=== PATIENT | male | born 1975 | race Caucasian/White ===

== ENCOUNTER → 2018-04-20 11:24 | Outpatient (CLI) | payer MEDICAID, SELFPAY ==
[2018-04-20 11:49] VITALS: BP 144/88; PULSE 71; RESP 16; TEMP 36.5; O2SAT 98; BMI 30.8
[2018-04-20 12:23] VITALS: BP 144/88; PULSE 71; RESP 16; TEMP 36.5; O2SAT 98
[2018-04-20] MEDS: Acetaminophen 325 MG Tablet 650 MG PO (12:31)
[2018-04-20 12:38] VITALS: BP 140/85; PULSE 66; RESP 16; TEMP 36.5; O2SAT 99
[2018-04-20 13:57] VITALS: BP 143/81; PULSE 69; RESP 16; TEMP 36.6
[2018-04-20 14:00] VITALS: BP 138/78; PULSE 69; RESP 16; TEMP 36.7
== END ==
PROVIDERS: Family Provider Family Medicine; PCP Family Medicine; Referring Provider Internal Medicine Hematology & Oncology; Visit Provider Internal Medicine Hematology & Oncology
DX: C92.00 Acute myeloblastic leukemia, not having achieved remission (principal)
CPT/HCPCS: 36430; 86900; 86965; J7040; P9037; A4216

== ENCOUNTER 2018-04-24 13:28 | Emergency (ER) | payer MEDICAID, SELFPAY ==
[2018-04-24] VITALS (10 sets, daily range): BP systolic 95–143; BP diastolic 66–88; PULSE 99–140; RESP 12–25; TEMP 36.9–38.3; O2SAT 97–100; BMI 29.8
--- NOTE | 2018-04-24 13:51 | RAD_ITS ---
STUDY: X-RAY CHEST REASON FOR EXAM: Male, 42 years old. Fever. TECHNIQUE: Single AP portable view of the chest. COMPARISON: None. FINDINGS: Double-lumen dialysis catheter terminates in the lower SVC. The lungs are clear and expanded. There is no demonstrated pleural abnormality. Normal size heart. Normal mediastinum and justin. Normal visualized pulmonary arteries. Normal visualized aortic arch and descending thoracic aorta. Normal visualized thoracic spine. Normal visualized ribs, clavicles, and shoulders. There is no demonstrated abnormality of the visualized soft tissue structures of the upper abdomen. RAD/Chest 1 View (Portable) IMPRESSION: No acute chest disease. Electronically Signed: Jevon Lewis MD at 15:06 EST , Service support ,
--- NOTE | 2018-04-24 13:51 | EKG12_ITS ---
Test Reason : Blood Pressure : / mmHG Vent. Rate : 134 BPM Atrial Rate : 134 BPM P-R Int : 134 ms QRS Dur : 082 ms QT Int : 392 ms P-R-T Axes : 036 015 021 degrees QTc Int : 585 ms Sinus tachycardia Cannot rule out Inferior infarct , age undetermined Abnormal ECG Confirmed by KATJA MARTINEZ, AMINATA ([id number]), visual effects editor BRAYAN MARQUEZ ([id number] on 04/28/2018 11:42:50 AM Referred By: Cecy Goss Confirmed By:AMINATA HIGHTOWER MD
--- NOTE | 2018-04-24 13:53 | ED.VISSUMM ---
- ER Visit Summary Date of Service: 04/24/18 Chief Complaint: Fall, lightheaded and weak History of Present Illness: The patient is a 42 M who has AML is on chemotherapy with last chemotherapy yesterday presents with jaundice, weakness and one episode of possible syncope earlier witnessed by his father. Patient said he was just sleeping but father was unable to wake him up. Patient denies any pain. He fell earlier today on wet tile, he apparently grabbed on to the bar and did not hit his head or any other injury. He certainly feels more lightheaded than normal and weak. Physical Examination: Patient appears chronically ill, he is obviously jaundiced Pupils are 4 mm bilaterally he has scleral icterus He has dry mucous membranes with no other oropharyngeal abnormality Heart is regular but tachycardic Lungs are coarse bilaterally Abdomen is soft and nontender He moves all extremities without any pain or difficulty He has petechiae on his legs and abdomen. Emergency Department Course and Treatment: Patient was found to be neutropenic. Cefepime and vancomycin were given. His platelets were 2 I transfused him. After IV fluids his tachycardia improved into the high 90s. His blood pressure is now back to normal. I had a long conversation with the patient, apparently he failed to chemotherapeutic agents and has no further hope at a cure. My plan is to admit him but he wants to go home. He understands he has at most a few weeks to live. I gave him fluids platelets and antibiotics, blood cultures are pending. I asked him if he would like to have hospice and he said as long as he can stay home he would be amiable. I discussed the patient with the hospice nurse who will set up an appointment tomorrow. Do not he does not want to be admitted he just wants to go home and watch NASCAR and be with his parents. His father who is in the room with him agreed and just wants to take care of him until he dies. Disposition: Discharge in guarded condition with hospice follow-up Impression: End-stage cancer, AML Thrombocytopenia Neutropenic fever End of life decision making This note was generated with [employer] software. It may contain incorrect words, spelling, and punctuation that were not noted in review of the chart prior to signing ED Disposition - Plan for ED Patient: Disposition: Home or Assisted Living Chief Complaint: Syncope Additional Instructions: If you feel worse or you want to return to the emergency department he may. Hospice will be in contact with you for an appointment tomorrow.
[2018-04-24 14:22] LABS: ALB/GLOB Ratio 0.8 RATIO (0.9-2.4); AST(SGOT) 12 U/L (15-37); Alanine Aminotransfer ALT/SGPT 21 U/L (16-61); Albumin, Serum 2.6 g/dL (3.2-5.0); Alkaline Phosphatase 218 U/L (45-117); Anion Gap 10 (5-15); BUN 20 mg/dL (7-18); BUN/Creat Ratio 11.8 RATIO (10-20); Calcium,Total 8.2 mg/dL (8.5-10.1); Chloride 95 mmol/L (98-107); EST Glomerular Filtration Rate 47 mL/min (>60); Est Glom Filt Rate - Afr Amer 57 mL/min (>60); Estimated Creatinine Clearance 58.45 ml/min; Globulin 3.1 g/dL (2.2-4.2); Glucose 160 mg/dL (74-106); Potassium 3.3 mmol/L (3.5-5.1); Protein, Total 5.7 g/dL (6.4-8.2); Sodium Level 130 mmol/L (136-145)
[2018-04-24] MEDS: 0.9% Normal Saline 1,000 ML IV.SOLN. 1000 ML IV (14:22)
[2018-04-24 14:24] LABS: Absolute Lymphocyte Count 0.38 X10^3/ul (0.83-4.51); Absolute Neutrophil Count 0.2 X10^3/uL (2.0-7.7); Hematocrit 23.4 % (40-54); Hemoglobin 7.8 g/dl (13.0-16.5); Lymphocyte # 0.38 X10^3/ul (4.0); Lymphocyte % 45.2 % (19-41); Mean Corp Hgb Conc 33.3 g/gl (32-36); Mean Corpuscular Hgb 27.9 pg (27.0-32.0); Mean Corpuscular Volume 83.6 fL (80-94); Monocyte# 0.25 X10^3/uL; Monocyte% 29.8 % (0-10); Neutrophil % 23.8 % (47-70); Platelet Count 2 K/mm3 (150-450); RBC Distribution Width CV 13.6 % (11.6-14.6); RBC Distribution Width SD 42.2 fl (35.1-43.9)
[2018-04-24 14:28] LABS: Lactic Acid 2.1 mmol/L (0.4-2.0)
[2018-04-24 14:31] LABS: Differential Indicated SCAN CRITERIA MET; POSITIVE COUNT YES; POSITIVE DIFFERENTIAL YES; POSITIVE MORPHOLOGY YES; White Blood Count 0.8 K/mm3 (4.4-11.0)
[2018-04-24 15:09] LABS: Differential Comment SCANNED; Platelet Estimate MKD DEC (ADEQ)
[2018-04-24 15:11] LABS: International Normalized Ratio 1.4; Partial Thromboplast Time 38.6 Seconds (24.1-36.2); Prothrombin Time (Protime)PT. 17.2 SECONDS (11.7-14.9)
[2018-04-24 15:58] LABS: Mucous, Urine 0 SEEN /hpf (<or=2+); Red Blood Cells-Urine 0 SEEN /hpf (0-5); Squamous Epithelial Cells - UA 0 SEEN /hpf (0-5)
[2018-04-24 16:48] LABS: Color, Urine Amber (Yellow); Glucose, Dipstick Normal (Normal); Ketone-Dipstick Negative (Negative); Leukocyte Esterase-Dipstick 25 /ul (Negative); Nitrite-Dipstick Negative (Negative); Occult Blood-Urine 50 /ul (Negative); Protein-Dipstick 100 mg/dl (Negative); Specific Gravity, Urine 1.005 (1.002-1.030); Urine Clarity Sl. Cloudy (Clear); Urine Urobilinogen 12 mg/dl (Normal)
[2018-04-24 16:49] LABS: Urine Bilirubin Dipstick 6 mg/dL (Negative)
[2018-04-24 16:59] LABS: White Blood Cells 0-5 SEEN /hpf (0-5)
[2018-04-24 17:01] LABS: Amorphous Sediment 2+; Bacteria RARE /hpf (None Seen); Calcium Oxalate Crystals Ur RARE /hpf (<or=2+)
[2018-04-24 17:57] LABS: Reflex Lactate? Y
[2018-04-26 12:58] LABS: Pathologist Review Reviewed
== END 2018-04-24 20:01 | disposition home or self-care (01) ==
PROVIDERS: Emergency Provider Emergency Medicine; Family Provider Family Medicine; PCP Family Medicine
DX: C92.00 Acute myeloblastic leukemia, not having achieved remission (principal); D69.6 Thrombocytopenia, unspecified; D70.9 Neutropenia, unspecified; R50.81 Fever presenting with conditions classified elsewhere; A41.9 Sepsis, unspecified organism; W18.39XA Other fall on same level, initial encounter; Z51.5 Encounter for palliative care
CPT/HCPCS: 36415; 36430; 71045; 80053; 81001; 83605; 85025; 85610; 85730; 86644; 86900; 86965; 87040; 87086; 87088; 93005; 96361; 96365; 96367; 99285; J7030; J7040; J7050; P9037; A4216